=== PATIENT | male | born 1945 | race Caucasian/White ===

== ENCOUNTER 2024-05-04 19:14 | Emergency (ER) | payer OTHER ==
[2024-05-04] VITALS (8 sets, daily range): BP systolic 66–123; BP diastolic 35–58
[~2024-05-04] VITALS: Ht 182.9 cm; Wt 76.0 kg
[2024-05-04 20:51] LABS: BASO% 0.6 % (0-3); EOS% 0.4 % (0-8); HEMATOCRIT 38.9 % (39.0-50.0); HEMOGLOBIN 12.7 g/dl (14.0-18.0); IMMATURE GRANULOCYTES 0.4 % (0.0-5.0); LYMPH% 13.8 % (15-41); MEAN CELL VOLUME 91.7 fL CALC (80.0-100.0); MEAN CORPUSCULAR HGB CONC 32.6 g/dL CAL (32.0-36.0); MONO% 13.4 % (2-13); NEUT# 3.88 thou/uL (1.82-7.42); NEUT% 71.4 % (42-76); RED BLOOD COUNT 4.24 mill/uL (4.70-6.10); RED CELL DISTRI WIDTH 13.6 % (11.5-15.5)
[2024-05-04 21:09] LABS: ALBUMIN 4.3 g/dL (3.2-5.0); ALKALINE PHOSPHATASE 133 u/l (38-126); ANION GAP 19 (6-22 (CALC)); BILIRUBIN, TOTAL 0.3 mg/dL (0.2-1.3); BUN 16 mg/dL (8-23); BUN/CREATININE RATIO 19 (12-20 (CALC)); CARBON DIOXIDE 21 mmol/l (22-30); CHLORIDE 107 mmol/l (95-108); CREATININE 0.8 mg/dL (0.7-1.3); ESTIMATED GFR 91 ML/MIN (>=90 (CALC)); ETHYL ALCOHOL 130 mg/dl (0-30); MAGNESIUM 1.7 mg/dL (1.6-2.3); POTASSIUM 3.6 mmol/l (3.5-5.1); SGOT/AST 44 u/l (19-48); SODIUM 143 mmol/l (137-146); TOTAL PROTEIN 7.4 g/dL (6.3-8.2)
[2024-05-04] MEDS ORDERED: SODIUM CHLORIDE 0.9% 1,000 ML IV ONE (21:40)
[2024-05-04 23:07] LABS: URINE BILIRUBIN - DIPSTICK Negative (NEGATIVE); URINE BLOOD DIPSTICK Moderate (NEGATIVE); URINE GLUCOSE - DIPSTICK Negative (NEGATIVE); URINE KETONE Negative (NEGATIVE); URINE LEUK ESTERASE Trace (NEGATIVE); URINE NITRITE - DIPSTICK Negative (Negative); URINE PH 5.5 (4.5-8.0); URINE PROTEIN - DIPSTICK Negative (NEG-TRACE); URINE SPECIFIC GRAVITY <=1.005; URINE UROBILINOGEN - DIPSTICK 0.2 E.U./dL (0.2)
[2024-05-04 23:11] LABS: URINE COLOR Yellow
[2024-05-04 23:15] LABS: URINE MUCUS RARE hpf (NONE-FEW); URINE RBC 0-2 RBC/hpf (0-5); URINE SQUAMOUS EPITHELIAL CELL RARE EPI/hpf (0-FEW); URINE WBC 0-2 WBC/hpf (0-5)
[2024-05-05] VITALS: BP 118/55
[2024-05-05 02:00] VITALS: BP 111/48
[2024-05-05 02:15] VITALS: BP 111/48
== END 2024-05-05 02:15 | DRG 880 ==
LOC: ED 19:14
PROVIDERS: Family Medicine
DX: R45.851 Suicidal ideations (principal); R45.850 Homicidal ideations; F12.99 Cannabis use, unspecified with unspecified cannabis-induced disorder; F10.129 Alcohol abuse with intoxication, unspecified; I10 Essential (primary) hypertension; Y90.6 Blood alcohol level of 120-199 mg/100 ml; Z20.822 Contact with and (suspected) exposure to COVID-19
CPT/HCPCS: J2359

== ENCOUNTER 2024-07-08 10:02 | Emergency (ER) | payer OTHER ==
[~2024-07-08] VITALS: Ht 182.9 cm; Wt 80.0 kg
[2024-07-08] MEDS ORDERED: SODIUM CHLORIDE 0.9% 1,000 ML IV ONE (10:10)
[2024-07-08 10:38] LABS: BASO% 0.2 % (0-3); EOS% 0.5 % (0-8); HEMATOCRIT 44.6 % (39.0-50.0); IMMATURE GRANULOCYTES 0.6 % (0.0-5.0); LYMPH% 29.1 % (15-41); MEAN CELL VOLUME 95.3 fL CALC (80.0-100.0); MEAN CORPUSCULAR HGB 29.9 pG CALC (26.0-32.0); MEAN CORPUSCULAR HGB CONC 31.4 g/dL CAL (32.0-36.0); MONO% 9.5 % (2-13); NEUT# 5.24 thou/uL (1.82-7.42); NEUT% 60.1 % (42-76); RED BLOOD COUNT 4.68 mill/uL (4.70-6.10); RED CELL DISTRI WIDTH 16.1 % (11.5-15.5)
[2024-07-08] MEDS ORDERED: KETOROLAC TROMETHAMINE 15 MG/ML SDV IV ONE (10:40)
[2024-07-08] MEDS ORDERED: LABETALOL HCL 100 MG/20 ML VIAL IV ONE (10:45)
[2024-07-08 10:56] LABS: ALBUMIN 4.2 g/dL (3.2-5.0); CREATININE 0.7 mg/dL (0.7-1.3); TOTAL PROTEIN 7.4 g/dL (6.3-8.2)
[2024-07-08 10:58] LABS: BILIRUBIN, TOTAL 0.6 mg/dL (0.2-1.3); POTASSIUM 2.8 mmol/l (3.5-5.1)
[2024-07-08 11:58] LABS: URINE BILIRUBIN - DIPSTICK Negative (NEGATIVE); URINE BLOOD DIPSTICK Negative (NEGATIVE); URINE GLUCOSE - DIPSTICK Negative (NEGATIVE); URINE KETONE Negative (NEGATIVE); URINE LEUK ESTERASE Trace (NEGATIVE); URINE NITRITE - DIPSTICK Negative (Negative); URINE PH 5.5 (4.5-8.0); URINE PROTEIN - DIPSTICK 30 mg/dL (NEG-TRACE); URINE SPECIFIC GRAVITY <=1.005; URINE UROBILINOGEN - DIPSTICK 0.2 E.U./dL (0.2)
[2024-07-08 12:03] LABS: URINE COLOR Yellow
[2024-07-08 12:04] LABS: URINE EPITHELIAL CELLS MODERATE EPI/hpf (0-FEW); URINE MUCUS MODERATE hpf (NONE-FEW)
[2024-07-08] MEDS ORDERED: POTASSIUM CHLORIDE 20 MEQ/TAB PO ONE (13:00)
[2024-07-08] MEDS ORDERED: MAGNESIUM SULFATE HEPTAHYDRATE 50 ML IV ONE (13:00)
[2024-07-08] MEDS ORDERED: K-TAB20 MEQ PO (17:40)
[2024-07-08 17:52] VITALS: BP 148/75
== END 2024-07-08 17:54 | disposition home or self-care (01) | DRG 897 ==
LOC: ED 10:02
PROVIDERS: Family Medicine
DX: F10.129 Alcohol abuse with intoxication, unspecified (principal); Y90.8 Blood alcohol level of 240 mg/100 ml or more; E87.6 Hypokalemia; I10 Essential (primary) hypertension; E11.9 Type 2 diabetes mellitus without complications; I25.10 Atherosclerotic heart disease of native coronary artery without angina pectoris; Z20.822 Contact with and (suspected) exposure to COVID-19
CPT/HCPCS: J1885; J1920; J3475